=== PATIENT | male | born 1960 | race Caucasian/White ===

== ENCOUNTER 2016-12-14 10:30 | Emergency (ER) | payer BC ==
[2016-12-14 11:18] VITALS: BP 154/85
--- NOTE | 2016-12-14 12:29 | UC ---
Abdominal Pain Male HPI - HPI Summary HPI Summary: 56 yo male had the onset of left sided abd pain yesterday felt gassy could not get comfortable tossed and turned last night today pain is less no n/v/d some mild chest tightness some mild URI symptoms no hx diverticulitis DM x 10 yrs - History of Current Complaint Chief Complaint: UCRespiratory Stated Complaint: CHEST HEAVY SOB Time Seen by Provider: 12/14/16 12:13 Hx Obtained From: Patient Onset/Duration: Gradual Onset, Lasting Days Timing: Constant Severity Initially: Severe Severity Currently: Mild Pain Intensity: 4 Pain Scale Used: 0-10 Numeric Location: Other - LUQ and LLQ Radiates: Yes Character: Cramping Aggravating Factor(s):: Nothing Alleviating Factor(s): Nothing Associated Signs And Symptoms: Positive: Fever - shannon yesterdaY, Decreased Appetite. Negative: Back Pain, Constipation, Blood in Stool, Urinary Symptoms, Vomiting, Diarrhea, Penile Discharge - Allergies/Home Medications Allergies/Adverse Reactions: Allergies Allergy/AdvReac Type Severity Reaction Status Date / Time Amoxicillin Allergy Mild Nausea Verified 04/14/16 08:28 Home Medications: Home Medications Cyclobenzaprine TAB* [Flexeril 10 MG TAB*] 12/14/16 [History] Glipizide [Glucotrol] 12/14/16 [History] Liraglutide [Victoza] 12/14/16 [History] Naproxen TAB* [Naprosyn TAB*] 12/14/16 [History] metFORMIN* [Glucophage 1000 MG TAB *] 12/14/16 [History] PMH/Surg Hx/FS Hx/Imm Hx Endocrine History Of: Reports: Diabetes Denies: Thyroid Disease Cardiovascular History Of: Denies: Cardiac Disorders, Hypertension, Pacemaker/ICD Respiratory History Of: Denies: COPD, Asthma GI/ History Of: Denies: Ulcer, Renal Disease - Surgical History Surgical History: Yes Surgery Procedure, Year, and Place: 2000 LEFT Knee surgery. Tonsilectomy. Inguinal hernia - Family History Known Family History: Positive: Cardiac Disease - FATHER (NOT AT AN EARLY AGE) - Social History Alcohol Use: Occasionally Substance Use Type: None Smoking Status (MU): Former Smoker Length of Time of Smoking/Using Tobacco: SMOKED 6 MONTHS IN 2006 Household Exposure Type: Cigarettes Review of Systems Constitutional: Negative Skin: Negative Eyes: Negative ENT: Negative Respiratory: Negative Cardiovascular: Chest Pain - MILD PRESSURE Gastrointestinal: Abdominal Pain Genitourinary: Negative Motor: Negative Neurovascular: Negative Musculoskeletal: Negative Neurological: Negative Psychological: Negative All Other Systems Reviewed And Are Negative: Yes Physical Exam Triage Information Reviewed: Yes Appearance: Well-Appearing, No Pain Distress, Other: - bmi 42 Vital Signs: Initial Vital Signs Temp 98.1 F 12/14/16 11:09 Pulse 93 12/14/16 11:09 Resp 20 12/14/16 11:09 BP 154/85 12/14/16 11:09 Pulse Ox 97 12/14/16 11:09 Eyes: Positive: Conjunctiva Clear ENT: Positive: Hearing grossly normal, Other: - NO SINUS TENDERNESS. Negative: Nasal congestion, Nasal drainage, Tonsillar swelling, Tonsillar exudate, Trismus , Muffled/hoarse voice Neck exam: Normal Neck: Positive: Nontender, No Lymphadenopathy Respiratory: Positive: Lungs clear, Normal breath sounds, No respiratory distress, No accessory muscle use Cardiovascular: Positive: RRR, No Murmur. Negative: Tachycardia, Bradycardia Abdomen Description: Positive: Soft. Negative: Nontender - LUQ AND LLQ TENDER, CVA Tenderness (R), CVA Tenderness (L), Distended, Peritoneal Signs, Pulsatile Mass Bowel Sounds: Positive: Present Musculoskeletal: Positive: ROM Intact, No Edema Neurological: Positive: Alert Psychological Exam: Normal Skin Exam: Normal Diagnostics - EKG Cardiac Rate: NL Cardiac Rhythm: Sinus: Normal Ectopy: None ST Segment: Normal - LAHB Abd Pain Male Course/Dx - Differential Dx/Clinical Impression Provider Diagnoses: LEFT SIDED ABDOMINAL PAIN -? DIVERTICULITIS. LEFT ANTERIOR HEMIBLOCK Discharge - Discharge Plan Condition: Stable Disposition: HOME Prescriptions: Metronidazole [Flagyl 500 MG TAB] 500 mg PO QID #28 tab Sulfamethox/Trimethoprim DS* [Bactrim DS 800/160 TAB*] 1 tab PO BID #14 tab Patient Education Materials: Diverticulitis (ED) Referrals: Gilles Overton MD [Primary Care Provider] - 1 Day Additional Instructions: SEE YOUR MD TOMORROW PLANNED WE WILL START ANTIBIOTIC IN CASE YOU HAVE DIVERTICULITIS IF THINGS WORSEN TODAY OR TONIGHT GO TO THE ER YOUR EKG SHOWED A LEFT ANTERIOR HEMIBLOCK
[2016-12-15 12:08] LABS: Hematocrit 47 % (42-52); Hemoglobin 15.7 g/dl (14.0-18.0); Mean Corpuscular HGB Conc 34 g/dl (31-36); Mean Corpuscular Hemoglobin 28 pg (27-31); Mean Corpuscular Volume 84 fL (80-94); Mean Platelet Volume 10 um3 (7.4-10.4); Red Blood Count 5.55 10^6/ul (4.0-5.4); Red Cell Distribution Width 13 % (10.5-15); White Blood Count 9.7 10^3/ul (3.5-10.8)
== END 2016-12-14 13:00 | disposition home or self-care (01) ==
LOC: UCEAST 10:30
DX: R10.12 Left upper quadrant pain (principal); E11.9 Type 2 diabetes mellitus without complications
CPT/HCPCS: 36415; 81003; 85025; 93005; 99212; G0463

== ENCOUNTER 2018-05-18 17:27 | Emergency (ER) | payer BC ==
[2018-05-18 17:34] VITALS: BP 151/97
--- NOTE | 2018-05-18 17:37 | UC ---
Respiratory Complaint HPI - HPI Summary HPI Summary: 57 yo male presents with sinus pain/pressure/congestion, body aches, and productive cough for the last 3 days. He tells me that he was at a convention in [place] 1 week ago and yesterday found out that many people there were diagnosed with influenza A - he is concerned that he may have it and is requesting testing today. Has felt feverish, but has not taken his temperature. Has not taken anything OTC. Denies sore throat, SOB, chest pain, abdominal pain , n/v. - History of Current Complaint Chief Complaint: UCRespiratory Stated Complaint: COUGH, AND CHEST CONGESTION Time Seen by Provider: 05/18/18 17:37 Hx Obtained From: Patient Onset/Duration: Gradual Onset Timing: Constant Severity Initially: Moderate Severity Currently: Moderate Pain Intensity: 7 Pain Scale Used: 0-10 Numeric Character: Cough: Productive - Allergies/Home Medications Allergies/Adverse Reactions: Allergies Allergy/AdvReac Type Severity Reaction Status Date / Time amoxicillin Allergy Nausea Verified 05/18/18 17:34 Home Medications: Home Medications Insulin NPH Human Isophane [Humulin N Kwikpen] 100 unit SC 05/18/18 [History] PMH/Surg Hx/FS Hx/Imm Hx Endocrine History: Diabetes - Surgical History Surgical History: Yes Surgery Procedure, Year, and Place: 2000 LEFT Knee surgery. Tonsilectomy. Inguinal hernia - Family History Known Family History: Positive: Cardiac Disease - FATHER (NOT AT AN EARLY AGE) - Social History Occupation: Employed Full-time Lives: With Family Alcohol Use: Occasionally Substance Use Type: None Smoking Status (MU): Former Smoker Length of Time of Smoking/Using Tobacco: SMOKED 6 MONTHS IN 2005 Household Exposure Type: Cigarettes Review of Systems Constitutional: Fever, Other - Body aches Skin: Negative Eyes: Negative ENT: Nasal Discharge, Sinus Congestion, Sinus Pain/Tenderness Respiratory: Cough Cardiovascular: Negative Gastrointestinal: Negative Neurovascular: Negative Neurological: Negative Psychological: Negative All Other Systems Reviewed And Are Negative: Yes Physical Exam - Summary Physical Exam Summary: GENERAL: NAD. WDWN. No pain distress. SKIN: No rashes, sores, lesions, or open wounds. HEENT: Head: AT/NC Eyes: EOM intact. Conjunctiva clear without inflammation or discharge. Ears: Hearing grossly normal. TMs intact, no bulging, erythema, or edema. Nose: Nasal mucosa mildly swollen and erythematous with yellow/ clear discharge. TTP maxillary and frontal sinus. Throat: Posterior oropharynx without exudates, erythema, or tonsillar enlargement. Uvula midline. NECK: Supple. Nontender. No lymphadenopathy. CHEST: CTAB. No r/r/w. No accessory muscle use. Breathing comfortably and in no distress. CV: RRR. Without m/r/g. Pulses intact. NEURO: Alert. CN II-XII grossly intact. PSYCH: Age appropriate behavior. Triage Information Reviewed: Yes Vital Signs: Initial Vital Signs Temp 101.0 F 05/18/18 17:31 Pulse 116 05/18/18 17:31 Resp 18 05/18/18 17:31 BP 151/97 05/18/18 17:31 Pulse Ox 98 05/18/18 17:31 Laboratory Tests 05/18/18 17:47 Influenza A (Rapid) Negative Influenza B (Rapid) Negative Vital Signs Reviewed: Yes UC Diagnostic Evaluation - Laboratory O2 Sat by Pulse Oximetry: 98 Respiratory Course/Dx - Course Course Of Treatment: POC flu negative. CXR has no radiologist reading after 1800 therefore wet read is read as negative for acute process. Suspect sinusitis vs bronchitis. Will rx for zpak and have him f/u if his symptoms persist/worsen. Pt agreeable with plan. - Differential Dx/Diagnosis Provider Diagnoses: Sinusitis. Cough Discharge - Sign-Out/Discharge Documenting (check all that apply): Patient Departure All imaging exams completed and their final reports reviewed: No - Discharge Plan Condition: Stable Disposition: HOME Prescriptions: Azithromycin TAB* [Zithromax TAB (Z-SUNNY) 250 mg #6 tabs] 2 tab PO .TODAY, THEN 1 DAILY #1 sunny Patient Education Materials: Sinusitis (ED), Acute Bronchitis (ED) Forms: *Work Release Referrals: Gilles Overton MD [Primary Care Provider] - Additional Instructions: If you develop a fever, shortness of breath, chest pain, new or worsening symptoms - please call your PCP or go to the ED. Your blood pressure was high at todays visit. Please see your primary provider within 4 weeks for recheck and re-evaluation. - Billing Disposition and Condition Condition: STABLE Disposition: Home
--- NOTE | 2018-05-19 07:38 | RAD ---
HISTORY: cough COMPARISONS: None VIEWS: 4: Frontal dual-energy and lateral views of the chest. FINDINGS: CARDIOMEDIASTINAL SILHOUETTE: The cardiomediastinal silhouette is normal. CAREY: The carey are normal. PLEURA: The costophrenic angles are sharp. No pleural abnormalities are noted. LUNG PARENCHYMA: The lungs are clear. ABDOMEN: The upper abdomen is clear. There is no subphrenic gas. BONES AND SOFT TISSUES: No bone or soft tissue abnormalities are noted. OTHER: None. IMPRESSION: NO ACTIVE CARDIOPULMONARY DISEASE. R0
--- NOTE | 2018-05-19 10:28 | ED ---
Course/Dx - Course Course Of Treatment: POC flu negative. CXR has no radiologist reading after 1800 therefore wet read is read as negative for acute process. Suspect sinusitis vs bronchitis. Will rx for zpak and have him f/u if his symptoms persist/worsen. Pt agreeable with plan. Discharge - Sign-Out/Discharge Documenting (check all that apply): Patient Departure All imaging exams completed and their final reports reviewed: Yes - Discharge Plan Condition: Stable Disposition: HOME Prescriptions: Azithromycin TAB* [Zithromax TAB (Z-SUNNY) 250 mg #6 tabs] 2 tab PO .TODAY, THEN 1 DAILY #1 sunny Patient Education Materials: Sinusitis (ED), Acute Bronchitis (ED) Forms: *Work Release Referrals: Gilles Overton MD [Primary Care Provider] - Additional Instructions: If you develop a fever, shortness of breath, chest pain, new or worsening symptoms - please call your PCP or go to the ED. Your blood pressure was high at todays visit. Please see your primary provider within 4 weeks for recheck and re-evaluation. - Billing Disposition and Condition Condition: STABLE Disposition: Home
== END 2018-05-18 19:05 | disposition home or self-care (01) ==
LOC: UCEAST 17:27
DX: J32.9 Chronic sinusitis, unspecified (principal); R05 Cough; Z87.898 Personal history of other specified conditions; Z88.3 Allergy status to other anti-infective agents
CPT/HCPCS: 71046; 99212; G0463

== ENCOUNTER 2019-06-29 07:10 | Emergency (ER) | payer OTHER ==
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
--- NOTE | 2019-06-29 07:52 | ED ---
Lower Extremity - HPI Summary HPI Summary: Pt is a 58 y/o M presenting to the ED for a chief complaint of left leg myalgia after a fall on 06/29/19. Pt fell while walking out of the door at his house and fell on his left leg. Pt was able to walk after the fall. Pt has injured his left leg in the past. The pain is mostly localized to the left knee. Pt feels as if the bone is punched out of place. Pt denies fever. Pt also fractured his left ankle in 2004. Pt has a PMHx of DM, a FMHx of cancer, and a PSHx of a laparoscopic surgery in May 2001 for a torn meniscus. - History of Current Complaint Chief Complaint: EDExtremityLower Stated Complaint: L KNEE PAIN PER PT Time Seen by Provider: 06/29/19 07:23 Hx Obtained From: Patient Mechanism Of Injury: Fall From A Standing Position Onset of Pain: Immediate Onset/Duration: Still Present Severity Initially: Severe Severity Currently: Severe Pain Intensity: 7 Pain Scale Used: 0-10 Numeric Timing: Constant, Lasting Hours Location: Is Discrete @ - Left LE, mostly in the left knee Character Of Pain: Unable To Describe - Feels as if "bone is punched out of place" Associated Signs And Symptoms: Positive: Knee Pain. Negative: Fever Aggravating Factor(s): Nothing Alleviating Factor(s): Nothing Able to Bear Weight: Yes - Allergies/Home Medications Allergies/Adverse Reactions: Allergies Allergy/AdvReac Type Severity Reaction Status Date / Time amoxicillin Allergy Nausea Verified 06/29/19 08:13 PMH/Surg Hx/FS Hx/Imm Hx Previously Healthy: Yes Endocrine/Hematology History: Reports: Hx Diabetes - type 2 dm Denies: Hx Thyroid Disease Cardiovascular History: Denies: Hx Hypertension, Hx Pacemaker/ICD Respiratory History: Denies: Hx Asthma, Hx Chronic Obstructive Pulmonary Disease (COPD) GI History: Denies: Hx Ulcer History: Denies: Hx Renal Disease Sensory History: Denies: Hx Hearing Aid Psychiatric History: Denies: Hx Panic Disorder - Surgical History Surgical History: Yes Surgery Procedure, Year, and Place: 2000 LEFT Knee surgery. Tonsilectomy. Inguinal hernia Infectious Disease History: No Infectious Disease History: Denies: Hx Hepatitis, Hx Human Immunodeficiency Virus (HIV), History Other Infectious Disease, Traveled Outside the US in Last 30 Days - Family History Known Family History: Positive: Cardiac Disease - FATHER (NOT AT AN EARLY AGE) - Social History Alcohol Use: Occasionally Hx Substance Use: No Substance Use Type: Reports: None Smoking Status (MU): Former Smoker Length of Time of Smoking/Using Tobacco: SMOKED 6 MONTHS IN 2005 Review of Systems Negative: Fever Positive: Arthralgia - Left knee, Myalgia - Left LE, mostly in the left knee All Other Systems Reviewed And Are Negative: Yes Physical Exam - Summary Physical Exam Summary: Constitutional: Well-developed, Well-nourished, Alert. (-) Distressed Skin: Warm, Dry. Abrasion to left knee HENT: Normocephalic; Atraumatic Eyes: Conjunctiva normal Neck: Musculoskeletal ROM normal neck. (-) JVD, (-) Stridor, (-) Nuchal rigidity Cardio: Rhythm regular, rate normal, Heart sounds normal; Intact distal pulses; Radial pulses are 2+ and symmetric. (-) Murmur Pulmonary/Chest wall: Effort normal. (-) Respiratory distress, (-) Wheezes, (-) Rales Abd: Soft, (-) tenderness, (-) Distension, (-) Guarding, (-) Rebound Musculoskeletal: (-) Edema. Notable for tenderness over the patella of left knee and distal fibula. No ligamentous instability. 2+ DP pulse bilaterally, negative straight leg raise, full ROM of knee Lymph: (-) Cervical adenopathy Neuro: Alert, Oriented x3 Psych: Mood and affect Normal Triage Information Reviewed: Yes Vital Signs On Initial Exam: Initial Vitals Temp Pulse Resp BP Pulse Ox 96.2 F 81 18 140/93 97 06/29/19 07:12 06/29/19 07:12 06/29/19 07:12 06/29/19 07:12 06/29/19 07:12 Vital Signs Reviewed: Yes Procedures - Sedation Patient Received Moderate/Deep Sedation with Procedure: No Diagnostics - Vital Signs Vital Signs Temp Pulse Resp BP Pulse Ox 06/29/19 07:12 96.2 F 81 18 140/93 97 - Laboratory Lab Statement: Any lab studies that have been ordered have been reviewed, and results considered in the medical decision making process. - Radiology Knee X-ray Radiology Interpretation Completed By: Radiologist Summary of Radiographic Findings: Knee X-ray IMPRESSION: 1. OSTEOPENIA. 2. OSTEOARTHRITIS. 3. PERIPHERAL ARTERIAL DISEASE. 4. NO ACUTE OSSEOUS INJURY. IF SYMPTOMS PERSIST, RECOMMEND REPEAT IMAGING. Reviewed by ED physician. Lower extremity X-ray Radiology Interpretation Completed By: Radiologist Summary of Radiographic Findings: Lower extremity X-ray IMPRESSION: 1. OSTEOPENIA. 2. OSTEOARTHRITIS. 3. PERIPHERAL ARTERIAL DISEASE. 4. NO ACUTE OSSEOUS INJURY. IF SYMPTOMS PERSIST, RECOMMEND REPEAT IMAGING. Reviewed by ED physician. Re-Evaluation - Re-Evaluation 1st re-eval Re-Evaluation Time: 09:43 Change: Unchanged Comment: At 09:43, I updated the pt about imaging results. Ambulated, given work excuse Lower Extremity Course/Dx - Course Course Of Treatment: 58 year-old male presents with left knee pain after ground level fall. Neurovascular intact, abrasion of the left knee, tenderness of the patella and distal fibula, check XRays - Diagnoses Provider Diagnoses: Left knee pain Discharge ED - Sign-Out/Discharge Documenting (check all that apply): Patient Departure - Discharge - Discharge Plan Condition: Stable Disposition: HOME Patient Education Materials: Knee Pain (ED) Forms: *Work Release Referrals: Gilles Overton MD [Primary Care Provider] - Additional Instructions: You were seen in the emergency department for knee pain. Your x-rays did not show any fractures. Please follow up with orthopedic surgeon If any studies were not completed at the time of discharge you will be called with the relevant results. Please follow up with your primary care doctor in next 2-3 days and return to emergency department for worsening or concerning symptoms. It was a pleasure taking care of you today. - Billing Disposition and Condition Condition: STABLE Disposition: Home - Attestation Statements Document Initiated by Lutheribever: Yes Documenting Scribe: Felicia Avila Provider For Whom Quyen is Documenting (Include Credential): Ce Schaffer MD. Scribe Attestation: I, violetta Carrascoed for Ce Schaffer MD. on 06/29/19 at 1001. Scribe Documentation Reviewed: Yes Provider Attestation: The documentation as recorded by the Felicia chirinos accurately reflects the service I personally performed and the decisions made by me, Ce Schaffer MD. Status of Scribe Document: Viewed
[2019-06-29] MEDS: Tetan/Diph/Pertus SYR(Tdap)* 0.5 ML SYR(BOOSTRIX) use SYR contains LATEX IM ONE (08:11)
[2019-06-29 10:29] VITALS: BP 151/87
== END 2019-06-29 10:28 | disposition home or self-care (01) ==
LOC: ED 07:10
DX: M25.562 Pain in left knee (principal); Z23 Encounter for immunization; M85.80 Other specified disorders of bone density and structure, unspecified site; M19.90 Unspecified osteoarthritis, unspecified site; I73.9 Peripheral vascular disease, unspecified; E11.9 Type 2 diabetes mellitus without complications; Z79.4 Long term (current) use of insulin; Z87.891 Personal history of nicotine dependence; Z88.1 Allergy status to other antibiotic agents
CPT/HCPCS: 90471; 90715; 99282

== ENCOUNTER 2019-08-30 10:38 | Observation (INO) | payer OTHER ==
--- NOTE | 2019-08-30 11:05 | ED ---
HPI Chest Pain - HPI Summary HPI Summary: Patient is a 58 y/o M presenting to the ED for a chief complaint of diffuse chest pain. Patient notes the pain radiates to the bilateral shoulders and lasts for 5 minutes before resolving. He rates the chest pain as 6/10 in severity, with the pain now resolved. His last episode of chest pain was around 09:00 on 08/30/19. 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 He notes recent stress. Patient denies any aggravating or alleviating factors. PSHx is significant for stent placement in April 2017 performed at [facility]. At that time, he had an abnormal EKG and was able to complete a cardiac stress test due to knee problems. PMHx is also significant for insulin- dependent DM. FMHx is significant for IA in his father. Patient takes Plavix and aspirin daily. He denies tobacco use. He admits a visit to [facility] in the past. Patient sees Dr. Sneha Skinner, a pmp, in [place], [place]. - History of Current Complaint Chief Complaint: EDChestPainROMI Time Seen by Provider: 08/30/19 10:50 Hx Obtained From: Patient Onset/Duration: Atraumatic, Resolved Timing: Intermittent, Lasting Minutes - 5 minutes Initial Severity: Moderate Current Severity: Moderate Pain Intensity: 6 Pain Scale Used: 0-10 Numeric Chest Pain Location: Diffuse Chest Pain Radiates: Yes Chest Pain Radiates To:: Shoulder - Bilateral Aggravating Factor(s): Nothing Alleviating Factor(s): Nothing Associated Signs and Symptoms: Positive: Chest Pain, Recent Stress, Shortness of Breath - On exertion, Palpitations - Allergy/Home Medications Allergies/Adverse Reactions: Allergies Allergy/AdvReac Type Severity Reaction Status Date / Time amoxicillin Allergy Nausea Verified 08/30/19 10:47 Home Medications: Home Medications Ascorbic Acid TAB* [Vitamin C TAB*] 1,000 mg PO QAM 08/30/19 [History Confirmed 08/30/19] Ascorbic Acid TAB* [Vitamin C TAB*] 500 mg PO QPM 08/30/19 [History Confirmed 08/30/19] Aspirin EC TAB* [Ecotrin EC Low Dose 81 MG*] 81 mg PO DAILY 08/30/19 [History Confirmed 08/30/19] Atorvastatin* [Lipitor*] 80 mg PO DAILY 08/30/19 [History Confirmed 08/30/19] Calcium Carb/Mag Ox/Zinc Sulf [Calcium & Magnesium + Zin 334-134-5 mg] 1 tab PO QPM 08/30/19 [History Confirmed 08/30/19] Calcium Carb/Mag Ox/Zinc Sulf [Usxungm-Kipczlabk-Nmkb Tablet] 2 each PO QAM 12/14 [History Confirmed 08/30/19] Cinnamon Bark [Cinnamon] 1,000 mg PO DAILY 08/30/19 [History Confirmed 08/30/19] Clopidogrel TAB* [Plavix TAB*] 75 mg PO DAILY 08/30/19 [History Confirmed ] Coenzyme Q10 (NF) [Th Co Q-10] 1 cap PO DAILY 08/30/19 [History Confirmed ] Cyclobenzaprine TAB* [Flexeril 10 MG TAB*] 10 mg PO .2-3X/DAY PRN 08/30/19 [ History Confirmed 08/30/19] Empaglifozin (NF) [Jardiance (Nf)] 10 mg PO QAM 08/30/19 [History Confirmed 12/14] Grape Seed Xt/Bioflavon,Ketchum [Grape Seed 50 mg Capsule] 100 mg PO BID [History Confirmed 08/30/19] Insulin NPH Hum/Reg Insulin Hm [Novolin 70-30 Flexpen] 50 unit SQ QAM 08/30/19 [ History Confirmed 08/30/19] Insulin NPH Hum/Reg Insulin Hm [Novolin 70-30 Flexpen] 60 unit SQ QPM 08/30/19 [ History Confirmed 08/30/19] Metoprolol Tartrate TAB* [Lopressor TAB*] 25 mg PO BID 08/30/19 [History Confirmed 08/30/19] Nitroglycerin TAB 0.4 MG* 0.4 mg SL Q5M PRN MDD 3 doses 08/30/19 [History Confirmed 08/30/19] Panax Ginseng Root [Lao Ginseng] 350 mg PO DAILY 08/30/19 [History Confirmed 08/30/19] Pioglitazone TAB* [Actos TAB*] 15 mg PO DAILY 08/30/19 [History Confirmed ] Turmeric 400 mg PO DAILY 08/30/19 [History Confirmed 08/30/19] PMH/Surg Hx/FS Hx/Imm Hx Previously Healthy: Yes Endocrine/Hematology History: Reports: Hx Diabetes - type 2 dm Denies: Hx Thyroid Disease Cardiovascular History: Denies: Hx Hypertension, Hx Pacemaker/ICD Respiratory History: Denies: Hx Asthma, Hx Chronic Obstructive Pulmonary Disease (COPD) GI History: Denies: Hx Ulcer History: Denies: Hx Renal Disease Sensory History: Denies: Hx Legally Blind, Hx Deafness, Hx Hearing Aid Opthamlomology History: Denies: Hx Legally Blind EENT History: Denies: Hx Deafness Psychiatric History: Denies: Hx Panic Disorder - Surgical History Surgical History: Yes Surgery Procedure, Year, and Place: 2000 LEFT Knee surgery. Tonsilectomy. Inguinal hernia Infectious Disease History: No Infectious Disease History: Denies: Hx Hepatitis, Hx Human Immunodeficiency Virus (HIV), History Other Infectious Disease, Traveled Outside the US in Last 30 Days - Family History Known Family History: Positive: Cardiac Disease - FATHER (NOT AT AN EARLY AGE), Other - IA - Social History Occupation: Employed Full-time Lives: With Family Alcohol Use: Occasionally Hx Substance Use: No Substance Use Type: Reports: None Hx Tobacco Use: Yes Smoking Status (MU): Former Smoker Length of Time of Smoking/Using Tobacco: SMOKED 6 MONTHS IN 2005 Review of Systems Positive: Palpitations, Chest Pain - Diffuse Positive: Shortness Of Breath - On exertion Positive: Arthralgia - Bilateral shoulders that radiates from the chest All Other Systems Reviewed And Are Negative: Yes Physical Exam - Summary Physical Exam Summary: Constitutional: Well-developed, Obese, Alert. (-) Distressed Skin: Warm, Dry HENT: Normocephalic; Atraumatic Eyes: Conjunctiva normal Neck: Musculoskeletal ROM normal neck. (-) JVD, (-) Stridor, (-) Nuchal rigidity Cardio: Rhythm regular, rate normal, Heart sounds normal; Intact distal pulses; Radial pulses are 2+ and symmetric. (-) Murmur Pulmonary/Chest wall: Effort normal. (-) Respiratory distress, (-) Wheezes, (-) Rales Abd: Soft, (-) tenderness, (-) Distension, (-) Guarding, (-) Rebound Musculoskeletal: (-) Edema Lymph: (-) Cervical adenopathy Neuro: Alert, Oriented x3 Psych: Mood and affect Normal Triage Information Reviewed: Yes Vital Signs On Initial Exam: Initial Vitals Temp Pulse Resp BP Pulse Ox 97.9 F 67 18 142/77 99 08/30/19 10:45 08/30/19 10:45 08/30/19 10:45 08/30/19 10:45 08/30/19 10:45 Vital Signs Reviewed: Yes Procedures - Sedation Patient Received Moderate/Deep Sedation with Procedure: No Diagnostics - Vital Signs Vital Signs Temp Pulse Resp BP Pulse Ox 08/30/19 10:45 97.9 F 67 18 142/77 99 - Laboratory Result Diagrams: 08/30/19 11:06 08/30/19 11:06 Lab Statement: Any lab studies that have been ordered have been reviewed, and results considered in the medical decision making process. - Radiology Chest X-ray Radiology Interpretation Completed By: Radiologist Summary of Radiographic Findings: Chest X-ray IMPRESSION: LOW LUNG VOLUMES. NO ACTIVE CARDIOPULMONARY DISEASE. Reviewed by Dr. Schaffer. - EKG 10:39 Cardiac Rate: NL - 62 BPM EKG Rhythm: Sinus Rhythm ST Segment: Normal Ectopy: None EKG Comparison: No Significant Change - From 12/14/16 Summary of EKG Findings: An EKG at 10:39 reveals normal sinus rhythm 62 BPM, nml axis, nml intervals. No STEMI. No acute changes. T wave inversion in lead III, T wave flattening in aVF. No changes from prior on 12/14/16. Reviewed and interpreted by Dr. Schaffer. Re-Evaluation - Re-Evaluation First Eval Re-Evaluation Time: 12:10 Change: Unchanged Comment: At 12:10, trop neg x1. D/w patient about obs, tele, serial trops and likely cardiology consult patient is agreeable to admission to [facility]. Chest Pain Course/Dx - Course Course Of Treatment: 58 y/o male w hx CAD s/p 2 stents 2 years ago, HLD, DM, p/ w CP while lifting heavy object at work now resolved. - EKG w LAFB chronic, follows w cardiology at [facility]. - plan for serial trop, tele, likely TBA given risk factors. Chest Pain DDX: The patient is well appearing, with stable vitals. Given the patient's clinical presentation, highest on differential is angina. Although less likely, differential also includes the following: --Pneumothorax: Equal breath sounds, story inconsistent since gradual onset of symptoms. CXR shows no evidence of pneumothorax. Unlikely. -- Cardiac tamponade: The history and physical are not concerning for tamponade. No Pulsus Paradoxus, no tachypnea. Unlikely. --Mediastinitis or esophageal rupture: The history is not consistent, as the patient has had no recent history of significant wretching, instrumentation, or mediastinal surgeries. Unlikely. --Aortic dissection: The patient does not describe the classical tearing chest pain radiating into the back, and the CXR does not show mediastinal widening or other signs of aortic dissection. Unlikely. --PE: Vitals wnl (not hypoxic, tachycardic or tachypneic). Heart score: 5 - Diagnoses Provider Diagnoses: Chest pain - Provider Notifications Discussed Care Of Patient With: López Piedra - At 12:13, Dr. López Piedra reviewed the patients case and agrees to admit the patient to [facility] with a diagnosis of chest pain. Time Discussed With Above Provider: 12:13 Instructed by Provider To: Admit As Inpatient Discharge ED - Sign-Out/Discharge Documenting (check all that apply): Patient Departure - Admit - Discharge Plan Condition: Stable Disposition: ADMITTED TO [facility] Referrals: Gilles Overton MD [Primary Care Provider] - - Billing Disposition and Condition Condition: STABLE Disposition: Admitted to [facility] - Attestation Statements Document Initiated by Quyen: Yes Documenting Scribe: Felicia Avila Provider For Whom Quyen is Documenting (Include Credential): Ce Schaffer MD Scribe Attestation: I, Felicia Avila, scribed for Ce Schaffer MD on 08/30/19 at 1310. Scribe Documentation Reviewed: Yes Provider Attestation: The documentation as recorded by the Felicia chirinos accurately reflects the service I personally performed and the decisions made by , Ce Schaffer MD Status of Scribe Document: Viewed
[2019-08-30 11:14] LABS: ABS Basophils 0.1 10^3/ul (0-0.2); ABS Eosinophils 0.2 10^3/ul (0-0.6); ABS Lymphocytes 2.1 10^3/ul (1.0-4.8); ABS Monocytes 1.2 10^3/ul (0-0.8); ABS Neutrophils 6.8 10^3/ul (1.5-7.7); Hematocrit 45 % (42-52); Hemoglobin 15.2 g/dL (14.0-18.0); Lymphocyte % 20.2 %; Mean Corpuscular HGB Conc 34 g/dL (31-36); Mean Corpuscular Hemoglobin 29 pg (27-31); Mean Corpuscular Volume 86 fL (80-94); Mean Platelet Volume 7.6 fL (7.4-10.4); Platelet Count 287 10^3/uL (150-450); Red Blood Count 5.25 10^6 /uL (4.18-5.48); Red Cell Distribution Width 14 % (10-15); White Blood Count 10.3 10^3/uL (3.5-10.8)
[2019-08-30 11:40] LABS: Troponin I 0.01 ng/mL (<0.03)
[2019-08-30 11:48] LABS: Albumin 4.2 g/dL (3.2-5.2); Albumin/Globulin Ratio 1.4 (1-3); BUN/Creatinine Ratio 24.7 (8-20); Calcium 9.8 mg/dL (8.6-10.3); EGFR African American 133.5 (>60); EGFR Non-African American 110.4 (>60); Globulin 2.9 g/dL (2-4); Potassium 4.1 mmol/L (3.5-5.0); Total Bilirubin 0.5 mg/dL (0.2-1.0); Total Protein 7.1 g/dL (6.4-8.9)
[2019-08-30 12:05] LABS: TSH (Thyroid Stimulating Horm) 1.6 mcIU/mL (0.34-5.60)
[2019-08-30] MEDS ORDERED: Nitroglycerin TAB 0.4 MG* 0.4 MG TAB SL PRN (13:15)
[2019-08-30] MEDS ORDERED: Cyclobenzaprine TAB* 10 MG PO PRN (13:15)
[2019-08-30] MEDS ORDERED: Acetaminophen TAB* 325 MG PO PRN (13:23)
[2019-08-30] MEDS ORDERED: Ondansetron INJ* 2 MG/ML VIAL IV PRN (13:23)
[2019-08-30] MEDS: Heparin VIAL(*) 5000 UNITS/ML VIAL (FIVE THOUSAND) SUBCUT SCH ×2 (14:58→21:01)
--- NOTE | 2019-08-30 15:10 | HP ---
CC: Dr. Overton; Dr. Dewitt * ADMISSION HISTORY AND PHYSICAL: DATE OF ADMISSION: 08/30/19 PRIMARY CARE PROVIDER: Dr. Overton. FLOAT BUILDER: Dr. Dewitt. RN PLASTICS: Dr. Sneha Skinner with [facility] in [place]. HEALTHCARE PROXY: His daughter. CODE STATUS: DNR and DNI, discussed with the patient, filled out MOLST. SOURCE OF INFORMATION: History obtained from interview with the patient, discussion with ER physician. RELIABILITY: Very good. CHIEF COMPLAINT: Chest discomfort. 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 He reports he got upset, started feeling his heart racing with "a little discomfort " as well as pain in bilateral shoulders. He noticed the pain in his bilateral shoulders has been intermittent over the last several days, but was worse with "racing heart." He had shortness of breath and felt "a little sweaty" that lasted several minutes without radiation, but was associated with lightheadedness. He did walk about 60 feet before sitting down and putting his head in his hands and did not note any worsening of his discomfort or palpitations. He did have pain and shortness of breath 2 years prior to presentation with his PCI at [facility], but he noted it felt different because last time he had shortness of breath with all of his activities and not intermittently as presenting at this time. He notes last night he was shoveling snow without chest pain or discomfort or shortness of breath. Currently, he feels tired and hungry, but is chest pain-free. He suspects that he had 1 fever last week because he had had dry lips. He has had no cough, no nausea, vomiting, diarrhea. He has had no changes to his medications or travel. PAST MEDICAL HISTORY: Includes insulin dependent diabetes mellitus; CAD with PCI in 2017, details will be requested, at [facility]; hyperlipidemia. PAST SURGICAL HISTORY: He had left knee meniscus repair 1-1/2 months prior. He had a hernia repair and tonsillectomy. MEDICATIONS: Reviewed with the patient, include: 1. Cyclobenzaprine 10 mg 2 to 3 times per day p.r.n. 2. Atorvastatin 80 mg daily. 3. Cinnamon bark 1000 mg daily. 4. Aspirin 81 mg daily. 5. Plavix 75 mg daily. 6. Metoprolol tartrate 25 mg twice daily. 7. Nitroglycerin sublingual. 8. Ascorbic acid 500 mg in the evening. 9. Greek Ginseng 350 mg daily. 10. Ascorbic acid 1000 mg daily. 11. Grape seed with bioflavin and citrus 100 mg twice daily. 12. Turmeric 400 mg daily. 13. Co-enzyme Q10 1 cap daily. 14. Jardiance 10 mg in the morning. 15. Actos 15 mg daily. 16. Metformin 1500 mg in the evening. 17. Novolin 70/30, 50 units in the morning and 60 units at night. 18. Calcium, magnesium and zinc tab 1 tab in the evening and calcium, magnesium , zinc tab 2 each in the morning. ALLERGIES: To AMOXICILLIN, 3 years prior caused upset stomach. FAMILY HISTORY: Significant for father with CAD, [place] at age 78. Mother with lung cancer. SOCIAL HISTORY: No tobacco. Drinks 4 to 5 alcoholic beverages per month. No illicits. 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 REVIEW OF SYSTEMS: As per HPI, otherwise all other systems negative. PHYSICAL EXAMINATION GENERAL: Sitting up in bed, interactive, pleasant, in no apparent distress. VITAL SIGNS: When seen by this author, blood pressure 142/87, heart rate 71, respiratory rate is 16, 97% on room air, T-max in the emergency room 97.9. HEENT: His oropharynx is clear. He does have several missing teeth. His mucous membranes are moist. NECK: He has non-elevated JVD. No cervical or supraclavicular lymphadenopathy. LUNGS: Clear to auscultation bilaterally. HEART: He has regular rate and rhythm. No murmurs, rubs, or gallops. ABDOMEN: Obese, soft, nontender, nondistended. EXTREMITIES: Warm and well perfused without clubbing, cyanosis, or edema. He has less than 2-second cap refill. NEURO: Alert and oriented x3. His cranial nerves II through XII are intact. PSYCHIATRIC: He has no apparent anxiety, agitation, or depression. DIAGNOSTIC STUDIES/LAB DATA: Labs are reviewed notable for TSH 1.6, troponin I of 0.01, white blood cell count of 10.3, hemoglobin 15.2, and platelets 287. Pertinent imaging: Chest x-ray: Low lung volumes. No active cardiopulmonary disease. EKG: Normal sinus rhythm, left axis, late R-wave progression, normal limit intervals. T wave flattening in aVF. No Q's. No ST depressions or elevations. ASSESSMENT AND PLAN: This is a 58-year-old man with past medical history of coronary artery disease presenting with chest discomfort and palpitation. 1. Chest pain. Consider for ischemic etiology, although first troponin is negative and EKG is non-ischemic. His history of presenting with stress associated with chest discomfort, preceded by several days of bilateral shoulder pain, which may be anginal equivalent, is concerning. I will trend 2 additional troponins. If any elevation in troponin, repeat EKG. Repeat lipids in the morning, check hemoglobin A1c and plan on chemical stress with nuclear imaging. The patient did fail his exercise component of his previous stress test 2 years prior. Continue aspirin, Plavix and metoprolol, although n.p.o. after midnight. 2. Insulin dependent type 2 diabetes mellitus. Continue 70/30, although decrease morning dose from 50 to 35 in the setting of n.p.o. status. Fingersticks a.c., h.s. 3. Hyperlipidemia. Continue atorvastatin. 4. DVT prophylaxis: Heparin subcu. [id number]/[facility] #: [id number] MTDD
--- OUTSIDE RECORDS SUMMARY | 2019-08-30 16:44 | XMS REPORT | Continuity of Care Document ---
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 Novolin 70/30 50 units am, 60 90ml E11.65 Stalin Dewitt MD 04/07/2019 units pm with (70-30)100Unit/ML meals or as Suspension directed, mdd 120 Metformin HCL ER 2 tablets by 180tabs [...] am and 1 pm Unknown 100mg Capsules Icelandic Ginseng 1 daily Unknown 350mg Capsules Vitamin [...] Calcium 1 tablet daily Unknown 80mg Tablets Medications Administered in Office Medication SIG Qnty Indications Ordering Provider Date Depomedrol 40MG Ben Encinas MD 06/30/2019 Injection Depomedrol 40MG Ben Encinas MD 03/10/2019 Injection Depomedrol 40MG Ben Encinas MD 03/10/2019 Injection Depomedrol 40MG Ben Encinas MD 03/10/2019 Injection Depomedrol 40MG Ben Encinas MD 03/10/2019 Injection Depomedrol 40MG Ben Encinas MD 12/15/2018 Injection Depomedrol 40MG Ben Encinas MD 12/15/2018 Injection Synvisc Or Synvisc-One Rob Rosano, [facility] 06/21/2018 Injection 1 MG Injection Synvisc Or Synvisc-One Rob Rosano, [facility] 06/21/2018 Injection 1 MG Injection Synvisc Or Synvisc-One Rob Rosano, [facility] 06/14/2018 Injection 1 MG Injection Synvisc Or Synvisc-One Rob Rosano, [facility] 06/14/2018 Injection 1 MG Injection Synvisc Or Synvisc-One Tana Bitting, [facility] 06/07/2018 Injection 1 MG Injection Synvisc Or Synvisc-One Tana Bitting, [facility] 06/07/2018 Injection 1 MG Injection Depomedrol 40MG Rob Mancilla PA-C 03/22/2018 Injection Depomedrol 40MG Rob Mancilla PA-C 03/22/2018 Injection Depomedrol 40MG Ben Encinas MD 02/15/2018 Injection Immunizations Description No Information Available Vital Signs Date Vital Result Comment 07/27/2019 3:25pm Height 68 inches 5'8" Weight 268.00 lb w/ shoes Heart Rate 67 /min BP Systolic Sitting 160 mmHg BP Diastolic Sitting 88 mmHg BMI (Body Mass Index) 40.7 kg/m2 06/30/2019 8:06am Height 68 inches 5'8" Weight 270.00 lb Heart Rate 61 /min BP Systolic 130 mmHg BP Diastolic 82 mmHg Respiratory Rate 18 /min Body Temperature 98.1 F Pain Level 2 BMI (Body Mass Index) 41.0 kg/m2 Results Test Acquired Date Facility Test Result H/L Range Note Urine 04/07/2019 [facility] Ur Microalbumin < 15.[address] (mg/L) mg/[place] [address] [phone] Urine Creatinine 83.95 mg/dL Urine Microalbumin/Creatinine TNP <31 1 Comp Metabolic 04/07/2019 [facility] Sodium 135 mmol/L Normal 135-[address] [place] [address] [phone] Potassium 5.2 mmol/L High 3.5-5.0 Chloride 96 [...] Egfr 142.5 >60 2 Lipid Profile 04/07/2019 [facility] Triglycerides 146 mg/dL 3 (Trig/Chol/HDL) [address] [place] [address] [phone] Cholesterol 130 mg/dL 4 HDL Cholesterol 40.7 [...] High: >189 Procedures Date Code Description Status 06/30/201985690 Inject/Drain Joint/Bursa Major W/O US Completed 03/10/201954272 Inject/Drain Joint/Bursa Major W/O US Completed 03/10/2019 Inject/Drain Joint/Bursa Major W/O US Completed Medical Devices Description No Information Available Encounters Type Date Location Provider Dx Diagnosis Office Visit 06/30/2019 [facility] Ben Coppola S80.02xA Contusion of 8:00a at Lilly Encinas MD left knee, initial encounter M17.12 Unilateral primary osteoarthritis, left knee W19.xxxA Unspecified fall, initial encounter Office Visit 05/04/2019 [facility] and Stalin Dewitt, E11.65 Type 2 diabetes 4:20p Endocrinology of mellitus with [place] [place] hyperglycemia Z79.4 USP (current) use of insulin E78.5 Hyperlipidemia, unspecified Office Visit 04/07/2019 [facility] and Stalin Dewitt, E11.65 Type 2 diabetes 8:00a Endocrinology of mellitus with [place] hyperglycemia Z79.4 manager long term care (current) use of insulin I10 Essential (primary) hypertension E78.5 Hyperlipidemia, unspecified Assessments Date Code Description Provider 07/27/2019 E11.65 Type 2 diabetes mellitus with Stalin Dewitt MD hyperglycemia 07/27/2019 Z79.4 manager long term care (current) use of insulin Stalin Dewitt MD 07/27/2019 E83.52 Hypercalcemia Stalin Dewitt MD 06/30/2019 S80.02xA Contusion of left knee, initial encounter Ben Encinas MD 06/30/2019 M17.12 Unilateral primary osteoarthritis, left Ben Encinas MD knee 06/30/2019 W19.xxxA Unspecified fall, initial encounter Ben Encinas MD 05/04/2019 E11.65 Type 2 diabetes mellitus with Stalin Dewitt MD hyperglycemia 05/04/2019 Z79.4 USP (current) use of insulin Stalin Dewitt MD 05/04/2019 E78.5 Hyperlipidemia, unspecified Stalin Dewitt MD 04/07/2019 E11.65 Type 2 diabetes mellitus with Stalin Dewitt MD hyperglycemia 04/07/2019 Z79.4 USP (current) use of insulin Stalin Dewitt MD 04/07/2019 I10 Essential (primary) hypertension Stalin Dewitt MD 04/07/2019 E78.5 Hyperlipidemia, unspecified Stalin Dewitt MD 03/10/2019 M75.52 Bursitis of left shoulder Ben Encinas MD 03/10/2019 M75.51 Bursitis of right shoulder Ben Encinas MD 03/10/2019 M75.42 Impingement syndrome of left shoulder Ben Encinas MD 03/10/2019 M75.41 Impingement syndrome of right shoulder Ben Encinas MD 03/10/2019 M17.0 Bilateral primary osteoarthritis of knee Ben Encinas MD Plan of Treatment Future Appointment(s):11/09/2019 4:20 pm - Stalin Dewitt MD at [facility]07/27/2019 - Stalin Dewitt MDE11.65 Type 2 diabetes mellitus with hyperglycemiaFollow up:3 monthsInstructions:1. Your glucose goals are as follows: - less than 130mg/dL in the morning - less than 160 mg/dL in the evening 2. Increase insulin doses as follows: - 50 units in the morning - 55 units in evening plusextra 5 units if you have a snack - reduce the above doses by 50% if you do not eat a meal 3. Continue other medications as prescribed. 4. Reduce calcium/magnesium/zinc to 1-2 tablets at [id number] USP (current) use of zlhhnbsB27.52 Hypercalcemia Functional Status Description No Information Available Mental Status Description No Information Available Referrals Description No Information Available
[2019-08-30] MEDS ORDERED: Insulin ISOPH/REG 70/30 (*) 1 UNITS UNIT SUBCUT SCH (18:00)
[2019-08-30] MEDS ORDERED: Ascorbic Acid TAB* 500 MG PO SCH (18:00)
[2019-08-30] MEDS: Metoprolol Tartrate TAB* 25 MG PO SCH (21:01)
[2019-08-30] MEDS: metFORMIN* 500 MG TAB PO SCH (21:01)
[2019-08-31] MEDS: Heparin VIAL(*) 5000 UNITS/ML VIAL (FIVE THOUSAND) SUBCUT SCH ×2 (05:37→13:58)
[2019-08-31 06:11] LABS: HDL Cholesterol 30.1 mg/dL
[2019-08-31] MEDS ORDERED: Aminophylline IV* 25 MG/ML 10 ML VIAL ONE (07:46)
[2019-08-31] MEDS ORDERED: Regadenoson* 0.4 MG/5 ML SYRINGE ONE (07:46)
[2019-08-31] MEDS ORDERED: Aspirin EC TAB* 81 MG TAB.EC PO SCH (09:00)
[2019-08-31] MEDS ORDERED: Ascorbic Acid TAB* 500 MG PO SCH (09:00)
[2019-08-31] MEDS ORDERED: Atorvastatin* 80 MG TAB PO SCH (09:00)
[2019-08-31] MEDS ORDERED: Pioglitazone TAB* 15 MG PO SCH (09:00)
[2019-08-31] MEDS ORDERED: Insulin ISOPH/REG 70/30 (*) 1 UNITS UNIT SUBCUT SCH (09:00)
[2019-08-31] MEDS ORDERED: Clopidogrel TAB* 75 MG PO SCH (09:00)
[2019-08-31] MEDS: metFORMIN* 500 MG TAB PO SCH (10:12)
[2019-08-31] MEDS: Metoprolol Tartrate TAB* 25 MG PO SCH (10:12)
[2019-08-31 15:45] VITALS: BP 124/63
--- NOTE | 2019-09-01 00:15 | DS ---
CC: Dr. Overton * DISCHARGE SUMMARY: DATE OF ADMISSION: 08/30/19 DATE OF DISCHARGE: 08/31/19 PRIMARY CARE PROVIDER: Dr. Overton. DISPOSITION ON DISCHARGE: Home. CONDITION ON DISCHARGE: Good. PRIMARY DIAGNOSIS: Noncardiac chest pain. SECONDARY DIAGNOSES: 1. Insulin-dependent diabetes mellitus. 2. History of coronary artery disease. 3. Hyperlipidemia. PERTINENT LABORATORY DATA: Hemoglobin A1c 8.4%, troponin I 0.00 on 5 consecutive checks, total cholesterol 98, LDL 44, HDL 30. MEDICATIONS ON DISCHARGE: Unchanged from admission: 1. Metformin 1500 mg at bedtime. 2. Flexeril 10 mg 2 to 3 times daily as needed. 3. Atorvastatin 80 mg daily. 4. Cinnamon bark 1000 mg daily. 5. Aspirin 81 mg daily. 6. Clopidogrel 75 mg daily. 7. Metoprolol tartrate 25 mg twice daily. 8. Nitroglycerin sublingual as needed. 9. Vitamin C 500 mg in the evening. 10. Maori ginseng 350 mg daily. 11. Ascorbic acid 1000 mg in the morning. 12. Grape seed capsule 100 mg twice daily. 13. Turmeric 400 mg daily. 14. Co-enzyme Q10 1 cap daily. 15. Jardiance 10 mg in the morning. 16. Actos 15 mg daily. 17. Novolin 70/30, 50 units in the morning and 60 units at night. 18. Calcium, magnesium, zinc tab 2 in the evening and 1 at night. PERTINENT PROCEDURES PERFORMED DURING HOSPITAL STAY: Chemical stress with nuclear imaging. Impression: Fixed apical photopenia, which may reflect previous infarct versus physiological apical thinning, no reversible defects suggest ischemia low risk. HISTORY OF PRESENT ILLNESS AND HOSPITAL COURSE: A 58-year-old man with past medical history as outlined in the history of present illness on the day of admission including CAD with stenting. Did review his previous records. He did receive stents in the setting of 40% to 50% stenosis. His records should be scanned in the chart at this time. Did develop racing heart with some chest discomfort in the setting of stress at work, sent into the hospital, had normal troponins, normal EKG, and then a low risk stress test. The chest pain was thought to be noncardiac, however, stable angina in the setting of recurrent stressors at work are possibly in the differential. His medications were unchanged. He did not have additional chest pain throughout the course of hospital stay. He ambulated without chest pain. He had no chest pain during the course of the stress test. While difficult to accommodate, we did recommend attempting lower stress environment, it seems to be the etiology of his chest discomfort at this time frequently dominated the conversation between the 2 of us. His hemoglobin A1c is still uncontrolled; however, I understand he has been achieving better control in conjunction with Endocrinology over the preceding months. There are no complications throughout the course of hospital stay. FOLLOWUP INSTRUCTIONS: At followup, please: 1. Follow improve in chest discomfort or any return, evaluate other non-life- threatening etiologies as appropriate. 2. No specific labs or vitals that need followup. REASONS TO RETURN TO THE HOSPITAL: Including, but not limited to recurrent or worsening chest pain with or without associated shortness of breath, nausea, vomiting, lightheadedness, loss of consciousness, or near loss of consciousness , bleeding from any source, inability to obtain or tolerate medications were discussed with the patient. He acknowledged understanding. TIME SPENT: Greater than 60 minutes was were spent on this discharge of this patient, greater than half was spent [id number] with the patient. [id number]/[facility] #: [id number] PB
== END 2019-08-31 16:10 | disposition home or self-care (01) ==
LOC: ED 10:38 → MEDTELE 13:23
PROVIDERS: ADMIT Internal Medicine; ATTEND Internal Medicine
DX: R07.89 Other chest pain (principal); E11.9 Type 2 diabetes mellitus without complications; Z79.4 Long term (current) use of insulin; I25.10 Atherosclerotic heart disease of native coronary artery without angina pectoris; E78.5 Hyperlipidemia, unspecified; Z79.82 Long term (current) use of aspirin; Z79.899 Other long term (current) drug therapy; Z95.5 Presence of coronary angioplasty implant and graft; Z82.49 Family history of ischemic heart disease and other diseases of the circulatory system; Z87.891 Personal history of nicotine dependence; R94.31 Abnormal electrocardiogram [ECG] [EKG]
CPT/HCPCS: 36415; 71045; 78452; 80053; 80061; 83036; 84443; 84484; 85025; 93005; 93017; 96372; 99283; A9270-GY; A9502; G0378; J0280; J1644; J2785

== ENCOUNTER 2020-09-16 09:23 | Inpatient (IN) ==
[2020-09-16] MEDS ORDERED: NS 0.9% 1000 ml BAG 1,000 ML IV ONE ×2 (10:05→11:55)
[2020-09-16 10:53] LABS: ABS Lymphocytes 0.7 10^3/ul (1.0-4.8); ABS Monocytes 1.3 10^3/ul (0-0.8); ABS Neutrophils 7.5 10^3/ul (1.5-7.7); Eosinophil % 0.2 %; Hematocrit 45 % (42-52); Lymphocyte % 7.7 %; Mean Corpuscular HGB Conc 34 g/dL (31-36); Mean Corpuscular Hemoglobin 28 pg (27-31); Mean Corpuscular Volume 84 fL (80-94); Mean Platelet Volume 8.3 fL (7.4-10.4); Platelet Count 274 10^3/uL (150-450); Red Blood Count 5.38 10^6 /uL (4.18-5.48); Red Cell Distribution Width 14 % (10-15); White Blood Count 9.6 10^3/uL (3.5-10.8)
[2020-09-16 11:04] LABS: ALT 15 U/L (7-52); AST 15 U/L (13-39); Albumin 3.5 g/dL (3.2-5.2); Albumin/Globulin Ratio 0.9 (1-3); Alkaline Phosphatase 97 U/L (34-104); Anion Gap 12 mmol/L (2-11); BUN/Creatinine Ratio 17.1 (8-20); Blood Urea Nitrogen 12 mg/dL (6-24); CO2 Carbon Dioxide 24 mmol/L (22-32); Calcium 8.9 mg/dL (8.6-10.3); Chloride 93 mmol/L (101-111); EGFR African American 139.7 (>60); EGFR Non-African American 115.4 (>60); Globulin 3.7 g/dL (2-4); Glucose 298 mg/dL (70-100); Magnesium 1.7 mg/dL (1.9-2.7); Potassium 3.8 mmol/L (3.5-5.0); Sodium 129 mmol/L (135-145); Total Protein 7.2 g/dL (6.4-8.9)
[2020-09-16 11:19] LABS: TSH Ultra Thyroid Stim Horm 2.37 mcIU/mL (0.34-5.60)
[2020-09-16] MEDS ORDERED: Magnesium Sulfate IV 1GM/100ML 1 GM/100 ML BAG IV ONE (11:52)
[2020-09-16] MEDS ORDERED: Ondansetron 4 mg VIAL 2 MG/ML 2 ml VIAL IV PRN (12:21)
[2020-09-16] MEDS ORDERED: Al Hydrox/Mg Hydrox/Simet LIQ 30 ML UDC PO PRN (12:21)
[2020-09-16 13:56] LABS: C Reactive Protein 108.21 mg/L (<8.01)
[2020-09-16 14:17] LABS: Ferritin 281.8 ng/mL (24-336)
[2020-09-16 15:04] LABS: Urine Appearance Clear; Urine Bilirubin Negative (Negative); Urine Blood Negative (Negative); Urine Color Yellow; Urine Glucose 3+(>=500 mg/dL) (Negative); Urine Ketones 1+ (Negative); Urine Nitrite Negative (Negative); Urine Protein Negative (Negative); Urine Specific Gravity 1.013 (1.010-1.030); Urine Urobilinogen Negative (Negative)
[2020-09-16] MEDS: Nystatin TOP POWDER 15 GM BTL TOPICAL SCH ×2 (15:19→19:22)
[2020-09-16] MEDS: Enoxaparin 80 MG/0.8 ML SYR SUBCUT SCH (16:19)
[2020-09-16 16:39] LABS: Troponin I 0.01 ng/mL (<0.03)
[2020-09-16] MEDS: Insulin ISOPH/REG 70/30 SUBCUT SCH (16:57)
[2020-09-16] MEDS: NS 0.9% 1000 ml BAG 1,000 ML IV SCH (17:12)
[2020-09-16] MEDS ORDERED: Insulin ISOPH/REG 70/30 SUBCUT SCH (18:00)
[2020-09-17] MEDS: Enoxaparin 80 MG/0.8 ML SYR SUBCUT SCH ×3 (02:16→23:32)
[2020-09-17] MEDS: NS 0.9% 1000 ml BAG 1,000 ML IV SCH (02:16)
[2020-09-17 07:58] LABS: ABS Lymphocytes 0.5 10^3/ul (1.0-4.8); ABS Monocytes 0.6 10^3/ul (0-0.8); ABS Neutrophils 5.4 10^3/ul (1.5-7.7); Hematocrit 40 % (42-52); Hemoglobin 13.4 g/dL (14.0-18.0); Lymphocyte % 7.3 %; Mean Corpuscular HGB Conc 34 g/dL (31-36); Mean Corpuscular Hemoglobin 28 pg (27-31); Mean Corpuscular Volume 83 fL (80-94); Nucleated Red Blood Cells % 0.1; Platelet Count 275 10^3/uL (150-450); Red Cell Distribution Width 14 % (10-15); White Blood Count 6.5 10^3/uL (3.5-10.8)
[2020-09-17 08:07] LABS: BUN/Creatinine Ratio 21.3 (8-20); C Reactive Protein 82.49 mg/L (<8.01); Calcium 8.3 mg/dL (8.6-10.3); EGFR Non-African American 106.6 (>60); HDL Cholesterol 18.5 mg/dL; Magnesium 2.1 mg/dL (1.9-2.7); Potassium 3.5 mmol/L (3.5-5.0)
[2020-09-17] MEDS ORDERED: Remdesivir 5 MG/ML LIQ IV Vial 200 MG in NS 0.9% 250 ml 210 ML IV ONE (09:00)
[2020-09-17 09:20] LABS: Albumin/Globulin Ratio 0.9 (1-3); Globulin 3.2 g/dL (2-4); Indirect Bilirubin 0.3 mg/dL (0.3-1.0); Total Bilirubin 0.4 mg/dL (0.2-1.0); Total Protein 6.2 g/dL (6.4-8.9)
[2020-09-17] MEDS: Nystatin TOP POWDER 15 GM BTL TOPICAL SCH ×3 (09:24→22:31)
[2020-09-17] MEDS: Insulin ISOPH/REG 70/30 SUBCUT SCH ×2 (09:25→18:20)
[2020-09-17] MEDS ORDERED: Dextrose 50% Syringe 50 ml 25 GM/50 ML SYRINGE IV PUSH PRN (11:12)
[2020-09-17 11:58] LABS: HIV 4th Generation Nonreactive (Nonreactive)
[2020-09-17 12:06] LABS: Hepatitis C Antibody Negative (Negative)
[2020-09-18 05:44] LABS: ABS Lymphocytes 0.7 10^3/ul (1.0-4.8); ABS Monocytes 1.1 10^3/ul (0-0.8); ABS Neutrophils 7.8 10^3/ul (1.5-7.7); Hematocrit 39 % (42-52); Hemoglobin 13.2 g/dL (14.0-18.0); Lymphocyte % 7.2 %; Mean Corpuscular HGB Conc 34 g/dL (31-36); Mean Corpuscular Hemoglobin 28 pg (27-31); Mean Corpuscular Volume 82 fL (80-94); Mean Platelet Volume 8.2 fL (7.4-10.4); Platelet Count 334 10^3/uL (150-450); Red Blood Count 4.69 10^6 /uL (4.18-5.48); Red Cell Distribution Width 14 % (10-15); White Blood Count 9.6 10^3/uL (3.5-10.8)
[2020-09-18 06:08] LABS: BUN/Creatinine Ratio 22.5 (8-20); Calcium 8.6 mg/dL (8.6-10.3); EGFR African American 119.7 (>60); EGFR Non-African American 98.9 (>60); Total Bilirubin 0.3 mg/dL (0.2-1.0)
[2020-09-18 06:22] LABS: Potassium 3.9 mmol/L (3.5-5.0)
[2020-09-18] MEDS: Remdesivir 5 MG/ML LIQ IV Vial 100 MG in NS 0.9% 250 ml 230 ML IV SCH (09:19)
[2020-09-18] MEDS: Insulin ISOPH/REG 70/30 SUBCUT SCH ×2 (09:19→18:04)
[2020-09-18] MEDS: Nystatin TOP POWDER 15 GM BTL TOPICAL SCH ×3 (09:20→20:42)
[2020-09-18] MEDS: Enoxaparin 80 MG/0.8 ML SYR SUBCUT SCH (12:59)
[2020-09-19] MEDS: Enoxaparin 80 MG/0.8 ML SYR SUBCUT SCH ×2 (00:05→12:22)
[2020-09-19] MEDS: Insulin ISOPH/REG 70/30 SUBCUT SCH ×2 (08:15→18:03)
[2020-09-19] MEDS: Remdesivir 5 MG/ML LIQ IV Vial 100 MG in NS 0.9% 250 ml 230 ML IV SCH (08:16)
[2020-09-19] MEDS: Nystatin TOP POWDER 15 GM BTL TOPICAL SCH ×3 (08:16→22:35)
[2020-09-19 10:54] LABS: ABS Lymphocytes 0.9 10^3/ul (1.0-4.8); ABS Monocytes 1.1 10^3/ul (0-0.8); ABS Neutrophils 9.6 10^3/ul (1.5-7.7); Eosinophil % 0.1 %; Hematocrit 40 % (42-52); Hemoglobin 13.3 g/dL (14.0-18.0); Lymphocyte % 7.8 %; Mean Corpuscular HGB Conc 33 g/dL (31-36); Mean Corpuscular Hemoglobin 28 pg (27-31); Mean Corpuscular Volume 84 fL (80-94); Mean Platelet Volume 8.1 fL (7.4-10.4); Platelet Count 365 10^3/uL (150-450); Red Blood Count 4.82 10^6 /uL (4.18-5.48); Red Cell Distribution Width 15 % (10-15); White Blood Count 11.6 10^3/uL (3.5-10.8)
[2020-09-19 11:21] LABS: BUN/Creatinine Ratio 29.6 (8-20); Calcium 8.4 mg/dL (8.6-10.3); EGFR African American 137.4 (>60); EGFR Non-African American 113.6 (>60); Potassium 3.5 mmol/L (3.5-5.0)
[2020-09-20] MEDS: Enoxaparin 80 MG/0.8 ML SYR SUBCUT SCH ×3 (00:03→21:06)
[2020-09-20 07:01] LABS: ABS Basophils 0.1 10^3/ul (0-0.2); ABS Lymphocytes 1.3 10^3/ul (1.0-4.8); ABS Monocytes 1.3 10^3/ul (0-0.8); ABS Neutrophils 8.3 10^3/ul (1.5-7.7); Eosinophil % 0.3 %; Hematocrit 39 % (42-52); Hemoglobin 12.9 g/dL (14.0-18.0); Lymphocyte % 11.9 %; Mean Corpuscular HGB Conc 33 g/dL (31-36); Mean Corpuscular Hemoglobin 28 pg (27-31); Mean Corpuscular Volume 84 fL (80-94); Mean Platelet Volume 8.1 fL (7.4-10.4); Platelet Count 346 10^3/uL (150-450); Red Blood Count 4.65 10^6 /uL (4.18-5.48); Red Cell Distribution Width 15 % (10-15)
[2020-09-20 07:12] LABS: BUN/Creatinine Ratio 28.6 (8-20); Calcium 8.1 mg/dL (8.6-10.3); EGFR African American 139.7 (>60); EGFR Non-African American 115.4 (>60); Potassium 3.6 mmol/L (3.5-5.0)
[2020-09-20] MEDS: Insulin ISOPH/REG 70/30 SUBCUT SCH ×2 (10:19→17:44)
[2020-09-20] MEDS: Nystatin TOP POWDER 15 GM BTL TOPICAL SCH ×3 (10:23→21:00)
[2020-09-20] MEDS: Remdesivir 5 MG/ML LIQ IV Vial 100 MG in NS 0.9% 250 ml 230 ML IV SCH (10:28)
[2020-09-21 06:48] LABS: ABS Basophils 0.1 10^3/ul (0-0.2); ABS Lymphocytes 1.4 10^3/ul (1.0-4.8); ABS Monocytes 1.2 10^3/ul (0-0.8); ABS Neutrophils 8.2 10^3/ul (1.5-7.7); Eosinophil % 0.3 %; Hematocrit 39 % (42-52); Hemoglobin 13.3 g/dL (14.0-18.0); Lymphocyte % 12.7 %; Mean Corpuscular HGB Conc 34 g/dL (31-36); Mean Corpuscular Hemoglobin 29 pg (27-31); Mean Corpuscular Volume 83 fL (80-94); Mean Platelet Volume 8.1 fL (7.4-10.4); Platelet Count 355 10^3/uL (150-450); Red Blood Count 4.67 10^6 /uL (4.18-5.48); Red Cell Distribution Width 14 % (10-15); White Blood Count 10.8 10^3/uL (3.5-10.8)
[2020-09-21 07:05] LABS: BUN/Creatinine Ratio 29.9 (8-20); Calcium 8.3 mg/dL (8.6-10.3); EGFR African American 146.9 (>60); EGFR Non-African American 121.4 (>60); Potassium 3.7 mmol/L (3.5-5.0)
[2020-09-21] MEDS: Enoxaparin 80 MG/0.8 ML SYR SUBCUT SCH ×2 (09:42→20:34)
[2020-09-21] MEDS: Insulin ISOPH/REG 70/30 SUBCUT SCH ×2 (09:43→18:02)
[2020-09-21] MEDS: Nystatin TOP POWDER 15 GM BTL TOPICAL SCH ×3 (09:47→20:34)
[2020-09-21] MEDS: Remdesivir 5 MG/ML LIQ IV Vial 100 MG in NS 0.9% 250 ml 230 ML IV SCH (10:37)
[2020-09-22] MEDS ORDERED: Insulin ISOPH/REG 70/30 SUBCUT SCH (08:00)
[2020-09-22] MEDS: Enoxaparin 80 MG/0.8 ML SYR SUBCUT SCH (09:05)
[2020-09-22] MEDS: Nystatin TOP POWDER 15 GM BTL TOPICAL SCH ×2 (09:06→18:12)
[2020-09-22 12:20] VITALS: BP 138/64
== END 2020-09-22 14:00 | disposition home health service (06) | DRG 177 ==
LOC: ED 09:23 → MED 09:23
PROVIDERS: ADMIT Pediatrics; ATTEND Internal Medicine